=== PATIENT | female | born 1965 | race Caucasian/White ===

== ENCOUNTER 2017-02-16 16:01 | Emergency (ER) | payer OTHER ==
[~2017-02-16] VITALS: Ht 160 cm; Wt 72.1 kg
[~2017-02-16 16:01] MED LIST: GLYB5TAB13; INSUL; LISI20TA2; PIOG15TA2
[2017-02-16 16:08] VITALS: BP 157/90
[2017-02-16] MEDS ORDERED: NACL 0.9% 1,000 ML IV SCH (16:13)
[2017-02-16] MEDS ORDERED: NACL 0.9% 2,000 ML IV ONE (16:15)
[2017-02-16] MEDS ORDERED: INSULIN HUMAN REGULAR 100 UNITS/ML 10 ML VIAL IVP ONE ×2 (16:15)
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
[2017-02-16] MEDS ORDERED: PROMETHAZINE 25 MG/ML VIAL IVP ONE (16:35)
[2017-02-16 16:38] LABS: ANION GAP 15.6 (8-16); CALCIUM 8.1 mg/dL (8.5-10.1); CARBON DIOXIDE 24.6 mmol/L (21-32); CREATININE 0.6 mg/dL (0.6-1.3); POTASSIUM 4.2 mmol/L (3.5-5.1)
[2017-02-16 16:44] LABS: ALBUMIN 3.6 g/dL (3.4-5.0); TOTAL BILIRUBIN 0.7 mg/dL (0.0-1.0); TOTAL PROTEIN, SERUM 7.1 g/dL (6.4-8.2)
[2017-02-16 16:57] LABS: APPEARANCE,URINE HAZY (CLEAR); BILIRUBIN,URINE NEGATIVE (NEGATIVE); BLOOD, URINE TRACE-L (NEGATIVE); COLOR,URINE YELLOW (YELLOW); LEUKOCYTE ESTERASE ,URINE NEGATIVE (NEGATIVE); NITRITE, URINE POSITIVE (NEGATIVE); PROTEIN,URINE NEGATIVE (NEGATIVE); UGLUCOSE 3+ (NEGATIVE)
[2017-02-16 17:04] LABS: BACTERIA,URINE 4+ /HPF (None Seen); RBC,URINE 0-5 (RARE) /HPF (0-5); WBC,URINE 20-60 /HPF (0-5)
[2017-02-16] MEDS ORDERED: HYDROmorphone 1 MG/ML AMP IVP ONE ×2 (17:10→17:35)
[2017-02-16 17:16] LABS: BASOPHILS # (AUTO) 0.1 K/uL (0.00-0.22); BASOPHILS % (AUTO) 1.3 % (0.0-2.0); EOSINOPHILS # (AUTO) 0.2 K/uL (0-0.4); EOSINOPHILS % (AUTO) 2.1 % (0.0-4.0); HEMATOCRIT 46.7 % (36-48); HEMOGLOBIN 15.4 g/dL (12.0-16.0); LYMPHOCYTES # (AUTO) 0.7 K/uL (2.5-16.5); LYMPHOCYTES % (AUTO) 9.6 % (20.5-51.1); MEAN CORPUSCULAR HEMOGLOBIN 28 pg (27-31); MEAN CORPUSCULAR HGB CONC 33 g/dL (33-37); MEAN CORPUSCULAR VOLUME 85 fL (80-94); MONOCYTES # (AUTO) 0.5 K/uL (0.8-1.0); MONOCYTES % (AUTO) 7.3 % (1.7-9.3); NEUTROPHILS # (AUTO) 5.7 K/uL (1.8-7.7); NEUTROPHILS % (AUTO) 79.7 % (42.2-75.2); PLATELET COUNT (AUTO) 194 K/uL (140-450); RED CELL DISTRIBUTION WIDTH 12.4 % (11.6-13.7); WHITE BLOOD COUNT (AUTO) 7.2 K/uL (4.8-10.8)
[2017-02-16] MEDS ORDERED: cefTRIAXone 1,000 MG VIAL ONE (17:26)
--- NOTE | 2017-02-16 17:56 | NUR ---
REPORT GIVEN TO ARIAS BAPTISTE OF [place].
--- NOTE | 2017-02-16 18:09 | NUR ---
Patient to be transferred to [facility]. Is being transferred due to HIGHER LEVEL OF CARE. Receiving facility has accepting physician and available space. ER physician has signed transfer form. Patient or responsible republican has agreed to transfer and signed form. Patient belongings inventoried and will be sent with patient. Copy of nursing notes, lab reports, EKG, Physicians Orders and X-rays to be sent with patient. Report called to ARIAS BAPTISTE at receiving facility. [facility] has been called for transfer. ETA is 25 MINS.
[2017-02-16 18:20] VITALS: BP 166/87
== END 2017-02-16 17:58 | disposition short-term general hospital (02) ==
LOC: MED 16:01
DX: K85.90 Acute pancreatitis without necrosis or infection, unspecified (principal); E11.65 Type 2 diabetes mellitus with hyperglycemia; N39.0 Urinary tract infection, site not specified; Z88.0 Allergy status to penicillin; Z88.1 Allergy status to other antibiotic agents; Z88.5 Allergy status to narcotic agent; Z90.49 Acquired absence of other specified parts of digestive tract
CPT/HCPCS: 36415; 80053; 81001; 81025; 82150; 82948; 83605; 83690; 85025; 87040; 87086; 87186; 96361; 96365; 96375; 99285; J0696; J1170; J1815; J2550; J7030; J7060

== ENCOUNTER 2018-03-25 06:20 | Emergency (ER) | payer OTHER ==
[~2018-03-25] VITALS: Ht 160 cm; Wt 68.0 kg
[2018-03-25 06:27] VITALS: BP 161/100
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
[2018-03-25 06:43] VITALS: BP 161/100
--- NOTE | 2018-03-25 06:43 | NUR ---
Patient discharged with v/s stable. Written and verbal after care instructions given and explained. Patient verbalized understanding. Ambulatory with steady gait. All questions addressed prior to discharge. Advised to follow up with PMD.
== END 2018-03-25 06:43 | disposition home or self-care (01) ==
LOC: MED 06:20
DX: S00.83XA Contusion of other part of head, initial encounter (principal); E11.9 Type 2 diabetes mellitus without complications; Z88.1 Allergy status to other antibiotic agents; Z88.8 Allergy status to other drugs, medicaments and biological substances; Z88.5 Allergy status to narcotic agent; Z88.0 Allergy status to penicillin; Z79.899 Other long term (current) drug therapy; Y04.2XXA Assault by strike against or bumped into by another person, initial encounter; Y93.89 Activity, other specified; Y92.89 Other specified places as the place of occurrence of the external cause; Y99.8 Other external cause status
CPT/HCPCS: 99281